=== PATIENT | female | born 1955 | race American Indian/Alaskan Native ===

== ENCOUNTER 2017-02-11 10:11 | Emergency (ER) | payer OTHER ==
[2017-02-11 10:20] VITALS: TEMP 97.9
[2017-02-11] MEDS ORDERED: Naproxen 550 mg Tab PO STA (10:43)
[2017-02-11] MEDS ORDERED: Naproxen 550 mg Tab PO ONE (10:47)
--- NOTE | 2017-02-11 11:19 | C.PDOC ---
History Of Present Illness 02/11/2017 Alma Landers is a 61 year old female, whose past medical history includes arthritis, who presents to the emergency department complaining of left lateral ankle pain for the past three weeks. Patient reports there has been swelling and recently the pain has been getting worse. Patient also notes taking Aleve and there has been temporarily mild relief. Patient denies any falls or injuries. Patient denies chest pain, shortness of breath, back pain, abdominal pain, or other complaints. Time Seen by Provider: 02/11/17 10:27 Chief Complaint (Nursing): Lower Extremity Problem/Injury History Per: Patient History/Exam Limitations: no limitations Onset/Duration Of Symptoms: Days (three weeks) Current Symptoms Are (Timing): Still Present Severity: Mild - Hip Description Of Injury: denies: Fell, Tripped - Ankle/Foot Description Of Injury: Other (left lateral ankle pain with mild swelling) Past Medical History Reviewed: Historical Data, Nursing Documentation, Vital Signs Vital Signs: Last Vital Signs Temp 97.9 F 02/11/17 10:19 Pulse 78 02/11/17 12:30 Resp 16 02/11/17 12:30 BP 136/84 02/11/17 12:30 Pulse Ox 95 02/11/17 14:41 Family History: States: Unknown Family Hx - Social History Hx Tobacco Use: Yes Hx Alcohol Use: No Hx Substance Use: No - Immunization History Hx Tetanus Toxoid Vaccination: No Hx Influenza Vaccination: No Hx Pneumococcal Vaccination: No Review Of Systems Constitutional: Negative for: Fever Cardiovascular: Negative for: Chest Pain Respiratory: Negative for: Shortness of Breath Gastrointestinal: Negative for: Vomiting, Abdominal Pain Genitourinary: Negative for: Dysuria Musculoskeletal: Positive for: Foot Pain (left lateral ankle pain with mild swelling). Negative for: Back Pain Neurological: Negative for: Dizziness Physical Exam - Physical Exam Appears: Well, Non-toxic, No Acute Distress Skin: Normal Color, Warm, Dry Respiratory: Normal Breath Sounds Extremity: Normal ROM, Tenderness (mild tenderness and swelling on left distal lateral posterior to malleolus.), No Pedal Edema, No Calf Tenderness, Other (no erythema or warmth) Extremity: Bilateral: No Pedal Edema, Normal Color And Temperature, Normal ROM Pulses: Left Dorsalis Pedis: Normal, Right Dorsalis Pedis: Normal Neurological/Psych: Oriented x3, Normal Speech, Normal Cognition, Normal Motor, Normal Sensation ED Course And Treatment O2 Sat by Pulse Oximetry: 95 (room air) Pulse Ox Interpretation: Normal Medical Decision Making Medical Decision Makin02/11/2017 Impression: 61 year old female with mild tenderness and swelling on left distal lateral posterior to malleoulus. Plan: -- Left ankle x-ray -- Anaprox -- Reassess and disposition Progress Notes: 1206pm pt reports decreased pain after naproxen. xray shows ?avulsion fx, ? arthritic changes. air cast placed on pt, advised non weight bearing status recommended, but pt declines crutches. pt to f/u with Dr Fuentes, continue nsaids. 02/11/2017 12:45 Left ankle x-ray: Creator : Rafael Davis MD FINDINGS: BONES: Normal. No fracture. JOINTS: Normal. No osteoarthritis. Ankle mortise maintained. Talar dome intact SOFT TISSUES: Normal. OTHER FINDINGS: None. IMPRESSION: Normal left ankle radiographs. Disposition Counseled Patient/Family Regarding: Studies Performed, Diagnosis, Need For Followup, Rx Given - Disposition Referrals: En Westbrook MD [Staff Provider] - Disposition: HOME/ ROUTINE Disposition Time: 12:10 Condition: IMPROVED Additional Instructions: Follow up with Dr Fuentes. Call for an appointment. Wear aircast for comfort and support; Weight bearing not recommended. Take naproxen (with food) for pain if needed. Keep foot elevated when possible, apply cold compresses several times a day to swollen area. Prescriptions: Naproxen 500 mg PO BID #20 tab Instructions: Avulsion Fracture (ED) Forms: [facility] (Belgian) - Clinical Impression Clinical Impression: Ankle pain, left - Scribe Statement The provider has reviewed the documentation as recorded by the Scribe 02/11/2017 Scribe Attestation: Cecilia Dejesus MD Scribe Attestation: All medical record entries made by the Scribe were at my direction and personally dictated by me. I have reviewed the chart and agree that the record accurately reflects my personal performance of the history, physical exam, medical decision making, and the department course for this patient. I have also personally directed, reviewed, and agree with the discharge instructions and disposition.
[2017-02-11 12:31] VITALS: BP 136/84; PULSE 78; RESP 16
--- NOTE | 2017-02-11 12:42 | RAD ---
PROCEDURE: Left Ankle Radiographs. HISTORY: lat malleolus pain and mild swelling COMPARISON: None FINDINGS: BONES: Normal. No fracture. JOINTS: Normal. No osteoarthritis. Ankle mortise maintained. Talar dome intact SOFT TISSUES: Normal. OTHER FINDINGS: None. IMPRESSION: Normal left ankle radiographs.
[2017-02-11 14:41] VITALS: O2SAT 95
== END 2017-02-11 12:30 | disposition home or self-care (01) ==
LOC: C.ER 10:11
DX: M25.572 Pain in left ankle and joints of left foot (principal)

== ENCOUNTER 2017-02-21 10:11 | Emergency (ER) | payer OTHER ==
[2017-02-21 10:37] VITALS: TEMP 97.6
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
[2017-02-21 12:01] VITALS: BP 144/80; PULSE 89; RESP 20
[2017-02-21 12:34] VITALS: O2SAT 99
--- NOTE | 2017-02-21 14:50 | RAD ---
PROCEDURE: Left Ankle Radiographs. HISTORY: pain COMPARISON: 02/11/2017 FINDINGS: BONES: No acute cortical fractures noted. Multiple well corticated low-density ossifications border inferior and lateral malleoli. Unfused ossification centers versus old osseous avulsions -considerations. Posterior talar osseous prominence simulating a Stieda' s process Inferior and posterior (blending Achilles tendon insertional enthesophyte) calcaneal spurring. Midfoot dorsal cuneiform cortical hyperostoses with tiny coalescent cystic changes JOINTS: Normal. No osteoarthritis. Ankle mortise maintained. Talar dome intact SOFT TISSUES: Minimal circumferential soft tissue prominence. No gross eccentric soft tissue swelling appreciated OTHER FINDINGS: None. IMPRESSION: No acute cortical fracture. Medial and lateral infra malleoli are old osseous effusions versus unfused multiple ossifications centers. Calcaneal spurring Posterior talar osseous prominence simulating a Stieda' s process
== END 2017-02-21 13:15 | disposition home or self-care (01) ==
LOC: C.ER 10:11
DX: S93.402A Sprain of unspecified ligament of left ankle, initial encounter (principal); X58.XXXA Exposure to other specified factors, initial encounter; Y93.02 Activity, running
CPT/HCPCS: 73610; 97116; 97161; 99285; G8978; G8979; G8980